=== PATIENT | female | born 1985 | race Caucasian/White ===

== ENCOUNTER 2018-03-11 21:28 | Emergency (ER) | payer MEDICAID, OTHER ==
[~2018-03-11] VITALS: Ht 165.1 cm; Wt 77.1 kg
[2018-03-11] MEDS: HYDROcodone-ACET 5/325MG TAB PO ONE (22:22)
[2018-03-11 22:30] VITALS: BP 112/88
[2018-03-11] MEDS: KETOROLAC TROMETH 60MG/2ML VIAL IM ONE (23:18)
== END 2018-03-12 00:49 | disposition home or self-care (01) ==
LOC: ER 21:28
DX: S73.101A Unspecified sprain of right hip, initial encounter (principal); M25.512 Pain in left shoulder; V43.62XA Car passenger injured in collision with other type car in traffic accident, initial encounter; Y93.89 Activity, other specified; Y99.8 Other external cause status; Y92.410 Unspecified street and highway as the place of occurrence of the external cause
CPT/HCPCS: 73030; 73502; 81025; 96372; 99285; J1885